=== PATIENT | male | born 1995 | race Caucasian/White ===

== ENCOUNTER 2019-10-10 10:46 | Emergency (ER) | payer MEDICAID ==
[~2019-10-10] VITALS: Ht 170.2 cm; Wt 70.0 kg
[2019-10-10 11:29] VITALS: BP 126/72
[2019-10-10] MEDS ORDERED: SULF1TAB49 PO (11:33)
[2019-10-10] MEDS ORDERED: CEPH500C5 PO (11:33)
== END 2019-10-10 11:45 | disposition home or self-care (01) ==
LOC: ER 10:47
DX: J34.0 Abscess, furuncle and carbuncle of nose (principal); K13.0 Diseases of lips
CPT/HCPCS: 99283

== ENCOUNTER 2019-12-23 17:21 | Emergency (ER) | payer MEDICAID, OTHER ==
[~2019-12-23] VITALS: Ht 170.2 cm; Wt 73.2 kg
[2019-12-23 17:27] VITALS: BP 130/74
[2019-12-23] MEDS ORDERED: azithromycin 250mg tablet PO ONE (17:40)
[2019-12-23] MEDS ORDERED: CefTRIAXone 250MG IM Kit w/LIDOcaine IM ONE (17:40)
--- NOTE | 2019-12-23 18:01 | NUR ---
Male genitalia exam performed by MANUELITO Ely and sample obtained. Sampled labeled and sent to the lab.
[2019-12-23 18:17] LABS: CLARITY,URINE SLIGHTLY CLOUDY (Clear); COLOR,URINE YELLOW (Yellow); GLUCOSE, URINE NEGATIVE (Neg); KETONES,URINE NEGATIVE (Neg); LEUKOCYTE ESTERASE ,URINE SMALL (Neg); NITRITES, URINE NEGATIVE (Neg); OCCULT BLOOD,URINE NEGATIVE (Neg); PROTEIN,URINE NEGATIVE (Neg); UROBILINOGEN,URINE >=8.0 E.U/dL (0.2-1.0)
[2019-12-23 18:21] LABS: UA COLLECTION TYPE VOIDED
[2019-12-23 18:22] LABS: BACTERIA,URINE FEW /HPF (Neg); RBC,URINE NONE SEEN /HPF (0-2); SQUAMOUS EPITHELIAL CELL,UR FEW /LPF (FEW); WBC,URINE 30-50 /HPF (0-4)
== END 2019-12-23 18:15 | disposition home or self-care (01) ==
LOC: ER 17:21
DX: A64 Unspecified sexually transmitted disease (principal)
CPT/HCPCS: 36415; 81001; 86592; 87088; 87252; 87491; 87591; 96372; 99283; J0696

== ENCOUNTER 2020-02-26 08:26 | Emergency (ER) | payer MEDICAID, OTHER ==
[~2020-02-26] VITALS: Ht 170.2 cm; Wt 68.0 kg
[2020-02-26 08:41] VITALS: BP 135/96
[2020-02-26] MEDS ORDERED: azithromycin 250mg tablet PO ONE (09:25)
[2020-02-26] MEDS ORDERED: CefTRIAXone 250MG IM Kit w/LIDOcaine IM ONE (09:25)
[2020-02-26 09:27] LABS: CLARITY,URINE CLOUDY (Clear); COLOR,URINE YELLOW (Yellow); GLUCOSE, URINE NEGATIVE (Neg); KETONES,URINE NEGATIVE (Neg); LEUKOCYTE ESTERASE ,URINE SMALL (Neg); NITRITES, URINE NEGATIVE (Neg); OCCULT BLOOD,URINE NEGATIVE (Neg); PROTEIN,URINE NEGATIVE (Neg)
[2020-02-26 09:29] LABS: UA COLLECTION TYPE CLN CATCH MIDSTREAM
[2020-02-26 09:43] LABS: RBC,URINE NONE SEEN /HPF (0-2)
[2020-02-26 09:44] LABS: BACTERIA,URINE 1+ /HPF (Neg); SQUAMOUS EPITHELIAL CELL,UR NONE SEEN /LPF (FEW)
[2020-02-26 09:45] LABS: AMORPHOUS PHOSPHATES 4+
[2020-02-26 09:46] LABS: MUCUS STRANDS FEW /LPF (Neg); WBC,URINE 30-50 /HPF (0-4)
== END 2020-02-26 09:43 | disposition home or self-care (01) ==
LOC: ER 08:27
DX: R36.9 Urethral discharge, unspecified (principal)
CPT/HCPCS: 36415; 81001; 87088; 87491; 87591; 96372; 99283; J0696

== ENCOUNTER 2021-10-10 23:39 | Emergency (ER) | payer MEDICAID ==
[~2021-10-10] VITALS: Ht 170.2 cm; Wt 76.0 kg
[2021-10-11 00:25] VITALS: BP 163/93
== END 2021-10-11 03:39 | disposition home or self-care (01) ==
LOC: ER 23:40
DX: B34.9 Viral infection, unspecified (principal); Z20.822 Contact with and (suspected) exposure to COVID-19
CPT/HCPCS: 87635; 99283; C9803

== ENCOUNTER 2024-03-17 22:40 | Emergency (ER) | payer MEDICAID | END 2024-03-17 23:26 | LOC: ER 22:40 | DX: Z00.00 Encounter for general adult medical examination without abnormal findings (principal) | CPT/HCPCS: 99283 ==